=== PATIENT | male | born 1945 | race Caucasian/White ===

== ENCOUNTER → 2018-04-14 13:23 | Outpatient (REF) | payer OTHER, SELFPAY | LOC: LAB 13:23 | PROVIDERS: Visit Provider Otolaryngology Facial Plastic Surgery | DX: J34.89 Other specified disorders of nose and nasal sinuses (principal); J34.0 Abscess, furuncle and carbuncle of nose | CPT/HCPCS: 87070; 87077; 87147; 87186; 87205 ==

== ENCOUNTER → 2018-05-19 14:06 | Outpatient (REF) | payer OTHER, SELFPAY | LOC: LAB 14:06 | PROVIDERS: Visit Provider Otolaryngology Facial Plastic Surgery | DX: J34.89 Other specified disorders of nose and nasal sinuses (principal); J34.0 Abscess, furuncle and carbuncle of nose | CPT/HCPCS: 87070 ==

== ENCOUNTER → 2023-05-10 15:58 | Outpatient (CLI) | payer OTHER, SELFPAY ==
--- NOTE | 2023-05-10 | DI.MRI.S_ITS ---
PROCEDURE: MR KNEE RT WO CON INDICATIONS: PAIN IN RT KNEE TECHNIQUE: Noncontrast sagittal PD fast spin echo and T2 fast spin echo with fat saturation, sagittal 3-D FLASH with fat saturation; coronal T1 spin echo and PD fast spin echo with fat saturation, and axial PD fast spin echo with fat saturation through the knee. COMPARISON: None. FINDINGS: Image quality: Excellent. Menisci: There is oblique tear of the posterior horn and body of the medial meniscus extending to the inferior articular surface (series 7, image 25 series 10 image 21-25;. The lateral meniscus demonstrates normal morphology and internal signal. Cruciate ligaments: The anterior and posterior cruciate ligaments appear intact. Medial structures: There is grade 1 sprain of the distal medial collateral ligament (series 10, image 18). The semimembranosus tendon insertions and meniscocapsular junction appear intact. Visualized portions of the pes anserinus tendons appear normal. No abnormal bursal fluid. Lateral structures: The lateral collateral ligament, long and short heads of the biceps femoris tendon appear intact. The popliteus tendon appears normal. Iliotibial band appears normal. Anterior structures: The quadriceps and patellar tendons appear intact. Patellar alignment is normal. No femoral trochlear dysplasia or ventral trochlear prominence. No edema in the infrapatellar fat pad. Bones and cartilage: No bone marrow contusions or fractures. 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 Joint space: There is small knee joint effusion. A small popliteal cyst is present. There is a tiny synovial cyst in the posterior knee (series 7 image 15) Normal appearing synovial plicae are incidentally noted. IMPRESSION: 1. Medial meniscal tear. 2. Grade 1 sprain of MCL. 3. 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 4. Small knee joint effusion. 5. Small Hill's cyst. Dictated by: Micah Thornton M.D. on 05/11/2023 at 7:05 Approved by: Micah Thornton M.D. on 05/11/2023 at 8:46
== END ==
PROVIDERS: Referring Provider Family Medicine; Visit Provider Family Medicine
DX: S83.241A Other tear of medial meniscus, current injury, right knee, initial encounter (principal); S83.411A Sprain of medial collateral ligament of right knee, initial encounter; M23.91 Unspecified internal derangement of right knee; M71.21 Synovial cyst of popliteal space [Baker], right knee; M25.461 Effusion, right knee; M25.561 Pain in right knee
CPT/HCPCS: 73721

== ENCOUNTER → 2025-05-01 11:37 | Outpatient (CLI) | payer OTHER, SELFPAY ==
--- NOTE | 2025-05-01 | DI.MRI.S_ITS ---
PROCEDURE: MR LUMBAR SPINE WO CON INDICATIONS: pain of right sacroiliac joint, radiculopathy TECHNIQUE: Noncontrast sagittal T1 spin echo and T2 fast echo, sagittal STIR, and T2 fast spin echo through the lumbar spine. In cases with scoliosis, additional coronal T2 fast spin echo may be performed. COMPARISON: None. FINDINGS: Image quality: Excellent. Alignment and Curvature: There is normal bony alignment. Mild retrolisthesis of L3 on L4, L4 on L5 and L5 on S1. Bone Marrow: Marrow is of normal overall signal. No acute vertebral body compression fractures. Spinal Cord: Conus medullaris terminates at the L1 level. Visualized cord demonstrates normal signal and size. Paraspinous Soft Tissues: No paravertebral masses. The combination of disc bulging with endplate spurring and facet arthropathy result in the following: T12-L1: Normal appearance. L1-L2: Mild central canal stenosis with mild bilateral foraminal stenosis. L2-L3: Mild central canal stenosis with severe left and moderate right foraminal stenosis. L3-L4: Severe central canal stenosis with severe left lateral recess stenosis and severe left foraminal stenosis with moderate right foraminal stenosis. There is a prominent left subarticular disc protrusion with a lateral disc component measuring up to 19 mm in sagittal extent with subsequent compression upon the left L3 and L4 nerve roots.. L4-L5: Moderate central canal stenosis with severe bilateral foraminal stenosis. L5-S1: Moderate left foraminal stenosis. IMPRESSION: Multilevel degenerative disc disease results in varying degrees of central canal and foraminal stenosis most pronounced centrally and on the left at the L3-L4 level which may contribute to a radiculopathy. Dictated by: Mary Macdonald M.D. on 05/01/2025 at 14:05 Approved by: Mary Macdonald M.D. on 05/01/2025 at 14:09
--- NOTE | 2025-05-01 | DI.MRI.S_ITS ---
PROCEDURE: MR PELVIS WO CON INDICATIONS: pain of right sacroiliac joint, radiculopathy TECHNIQUE: Noncontrast axial and oblique coronal T1 spin echo and STIR through the sacroiliac joints. COMPARISON: [facility], MR, MR PELVIS WITHOUT CONTRAST, 12/08/2019, 10:37. FINDINGS: Image quality: Excellent. Bones: Lower lumbar facet arthropathy. Bilateral sacroiliac joints are unremarkable. The sacrum is intact. No subchondral marrow edema, significant subchondral sclerosis, or erosion of either sacroiliac joint. Bilateral sacral neural foramen are widely patent. Soft tissues: Markedly distended bladder, partially visualized. Bilateral posterior paraspinal musculature is unremarkable. No associated muscle edema or fatty atrophy. IMPRESSION: 1. Unremarkable bilateral sacroiliac joint. 2. Markedly distended bladder, partially visualized. Dictated by: Brisa Fung M.D. on 05/01/2025 at 16:46 Approved by: Brisa Fung M.D. on 05/01/2025 at 16:56
== END ==
LOC: MRI 11:38
PROVIDERS: Referring Provider Family Medicine; Visit Provider Family Medicine
DX: M51.16 Intervertebral disc disorders with radiculopathy, lumbar region (principal); M47.26 Other spondylosis with radiculopathy, lumbar region; M48.061 Spinal stenosis, lumbar region without neurogenic claudication; M48.07 Spinal stenosis, lumbosacral region; M53.3 Sacrococcygeal disorders, not elsewhere classified; N32.89 Other specified disorders of bladder
CPT/HCPCS: 72148; 72195